=== PATIENT | male | born 1970 | race Caucasian/White ===

== ENCOUNTER 2017-04-30 16:48 | Emergency (ER) | payer OTHER ==
[~2017-04-30] VITALS: Ht 180.3 cm; Wt 94.5 kg
[2017-04-30 17:03] VITALS: O2SAT 98
[2017-04-30 17:04] VITALS: Ht 180.3 cm; Wt 94.5 kg
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
[2017-04-30] MEDS ORDERED: METO50TA8 PO (17:20)
[2017-04-30] MEDS ORDERED: LEVO50TA6 PO (17:20)
[2017-04-30 18:54] VITALS: BP 103/67; PULSE 84; O2SAT 97
== END 2017-04-30 18:55 | disposition home or self-care (01) ==
LOC: C.EDC 16:49
DX: R05 Cough (principal); R42 Dizziness and giddiness; R51 Headache; Z77.128 Contact with and (suspected) exposure to other hazards in the physical environment; I10 Essential (primary) hypertension; E05.90 Thyrotoxicosis, unspecified without thyrotoxic crisis or storm; Z97.0 Presence of artificial eye